=== PATIENT | female | born 1985 | race Caucasian/White ===

== ENCOUNTER 2018-02-26 21:19 | Inpatient (IN) | payer BC ==
[2018-02-26] MEDS ORDERED: Oxytocin 10 UNITS/ML VIAL ONE (22:00)
[2018-02-26] MEDS ORDERED: Lidocaine 1% (PF) 30 ML VIAL ONE (22:45)
[2018-02-26] MEDS ORDERED: Misoprostol 200 MCG TAB ONE (22:51)
[2018-02-26 23:08] VITALS: BMI 30.4
[2018-02-26] MEDS ORDERED: Ibuprofen 800 MG TAB PO PRN (23:27)
[2018-02-26] MEDS ORDERED: NS / Oxytocin 40 units/1000ml 1,000 ML IV PRN (23:27)
[2018-02-26] MEDS ORDERED: Lidocaine 1% (PF) 30 ML VIAL SC PRN (23:27)
[2018-02-26] MEDS ORDERED: Misoprostol 200 MCG TAB PR PRN (23:27)
[2018-02-26] MEDS ORDERED: Ondansetron PF 4 MG/2 ML Vial IVP PRN (23:27)
[2018-02-26] MEDS ORDERED: Promethazine HCl 25 MG/ML VIAL IM PRN (23:27)
[2018-02-26] MEDS ORDERED: Oxytocin 10 UNITS/ML VIAL IM SCH (23:30)
[2018-02-26] MEDS ORDERED: Methylergonovine 0.2 MG/ML VIAL ONE (23:51)
[2018-02-27 00:45] LABS: Hemoglobin 12.2 g/dL (12.0-16.0); Mean Corpuscular HGB CONC 33.5 g/dL (32.0-36.0); Mean Corpuscular Hemoglobin 27.6 pg (27.0-31.0); Mean Corpuscular Volume 82.4 fL (78.0-98.0); Mean Platelet Volume 8.4 fL (7.4-10.4); Platelet Count 254 thou/uL (130-400); RBC Distribution Width 13.3 % (11.5-14.5); Red Blood Cell (RBC) Count 4.42 mill/uL (4.20-5.40); White Blood Cell (WBC) Count 22.3 thou/uL (4.8-10.8)
[2018-02-27 01:15] LABS: HBSAg Index 0.22 S/CO (0-0.99); Hep B Surf Ag Non-Reactive S/CO (NonReactive)
[2018-02-27 01:16] LABS: Syphilis Antibody Nonreactive (Nonreactive); Syphilis Antibody Index 0.04 S/CO (<1.00 Non-Reactive)
[2018-02-27] MEDS ORDERED: Milk Of Magnesia 30 ML UDCUP PO PRN (01:49)
[2018-02-27] MEDS ORDERED: Bisacodyl 10 MG SUPP PR PRN (01:49)
[2018-02-27] MEDS ORDERED: HYDROcodone/Acetaminophen 5/325 mg Tablet PO PRN (01:49)
[2018-02-27] MEDS ORDERED: NS / Oxytocin 40 units/1000ml 1,000 ML IV SCH (01:49)
--- NOTE | 2018-02-27 03:07 | OP ---
DELIVERY SUMMARY DATE OF DELIVERY: 02/26/2018 PREOPERATIVE DIAGNOSIS: Term-intrauterine . POSTOPERATIVE DIAGNOSES: Term intrauterine as well as a first-degree perineal laceration. PROCEDURE PERFORMED: Normal spontaneous vaginal delivery and laceration repair. SURGEON: Alberto Peguero MD ANESTHESIA: Local. QUANTITATIVE BLOOD LOSS: 375 mL BRIEF DELIVERY SUMMARY: This is a 32-year-old G1, now P1 who presented in active labor. She progres sed quickly to complete and pushing. She delivered a live female , head OA. Mouth and nares w ere bulb suctioned at the perineum. There was no nuchal cord. Shoulders and body easily followed an d the infant was placed on mother's abdomen. Infant Apgars were 8 at 1 minute and 8 at 5 minutes. U mbilical cord was doubly clamped and cut after delayed cord clamping. Cord blood was sent for analys is. Placenta delivered spontaneously and intact with 3-vessel umbilical cord. There was a first-deg ree perineal laceration which was repaired in standard fashion using 2-0 Vicryl suture under local an esthesia with excellent hemostasis. Uterine fundus was boggy following evacuation of the placenta wi th some brisk vaginal bleeding. This was treated with Pitocin 10 milliunits IM x1 and Cytotec 800 mc g rectally x1 as well as bimanual massage with good response in uterine tone and bleeding. Mom and b barbie were left with the nurse in excellent condition attempting to breast feed.
[2018-02-27] MEDS: Ibuprofen 800 MG TAB PO SCH ×5 (06:23→23:39)
[2018-02-27] MEDS: Ferrous Sulfate 325 MG TAB PO SCH ×2 (08:08→16:26)
[2018-02-27] MEDS: Docusate Calcium (SURFAK) 240 MG CAP PO SCH ×2 (08:40→23:39)
[2018-02-27] MEDS ORDERED: Measles/Mumps/Rubella 10 MCG/0.5 ML VIAL SC ONE (09:00)
[2018-02-27] MEDS ORDERED: Adacel (T-DAP) 0.5 ML VIAL IM ONE (09:00)
--- NOTE | 2018-02-27 15:25 | PDOC.PP ---
Post Progress Note Post Day #: 1 Subjective: No c/o. Bleeding starting to lessen./ Ambulating without dizziness. PO intake tolerated: yes Flatus: yes Ambulation: yes Vital Signs (12 hours) Temp Pulse Resp BP Pulse Ox 02/27/18 12:00 98.7 F 91 20 121/73 02/27/18 07:59 98.8 F 77 20 108/59 L 97 02/27/18 05:40 98.3 F 89 16 132/71 Weight Weight 200 lb - Physical Examination General: NAD Cardiovascular: no m/r/g, RRR Respiratory: clear to auscultation bilaterally, non-labored breathing Abdominal: + bowel sounds, lochia, no distention, appropriately TTP Psychiatric: A&Ox3, normal affect Result Diagrams: 02/27/18 00:20 Additional Labs: Post Labs Blood Type O POSITIVE 02/27/18 00:20 Hep Bs Antigen Non-Reactive S/CO (NonReactive) 02/27/18 00:20 (1) Vaginal delivery Code(s): O80 - ENCOUNTER FOR FULL-TERM UNCOMPLICATED DELIVERY Status: Acute - Assessment/Plan Routine PP care. Work on . Anticipate D/C tomorrow AM.
[2018-02-28 08:04] VITALS: BP 137/89; TEMP 97.6
[2018-02-28] MEDS: Ferrous Sulfate 325 MG TAB PO SCH (09:42)
[2018-02-28] MEDS: Docusate Calcium (SURFAK) 240 MG CAP PO SCH (09:42)
[2018-02-28] MEDS: Ibuprofen 800 MG TAB PO SCH ×2 (09:43→14:20)
--- NOTE | 2018-02-28 14:22 | PDOC.PP ---
Post Progress Note Post Day #: 2 Subjective: Doing well. Working on . PO intake tolerated: yes Flatus: yes Ambulation: yes Vital Signs (12 hours) Temp Pulse Resp BP Pulse Ox 02/28/18 08:03 97.6 F 81 20 137/89 98 Weight Weight 200 lb - Physical Examination General: NAD Cardiovascular: no m/r/g, RRR Respiratory: clear to auscultation bilaterally, non-labored breathing Abdominal: + bowel sounds, lochia, no distention, appropriately TTP Result Diagrams: 02/27/18 00:20 Additional Labs: Post Labs Blood Type O POSITIVE 02/27/18 00:20 Hep Bs Antigen Non-Reactive S/CO (NonReactive) 02/27/18 00:20 (1) Vaginal delivery Code(s): O80 - ENCOUNTER FOR FULL-TERM UNCOMPLICATED DELIVERY Status: Acute - Assessment/Plan Routine PP care D/C home
== END 2018-02-28 15:27 | disposition home or self-care (01) | DRG 807 ==
LOC: L&D/OP 21:19 → L&D-LIB 21:50 → 3SW 02-27 01:52
PROVIDERS: ADMIT Family Medicine; ATTEND Family Medicine
PROC: 10E0XZZ Delivery of Products of Conception, External Approach (ICD-10-PCS; principal; 2018-02-26)
PROC: 0HQ9XZZ Repair Perineum Skin, External Approach (ICD-10-PCS; 2018-02-26)
DX: O70.0 First degree perineal laceration during delivery (principal); Z37.0 Single live birth; Z3A.39 39 weeks gestation of pregnancy
CPT/HCPCS: 36415; 85027; 86780; 86850; 86900; 86901; 87340; 90707; 99285; J2001; J2210; J2590